=== PATIENT | male | born 1985 | race Caucasian/White ===

== ENCOUNTER → 2020-05-09 10:47 | Outpatient (BNVA) | payer OTHER, SELFPAY | PROVIDERS: Family Provider Emergency Medicine Emergency Medical Services; PCP Emergency Medicine Emergency Medical Services; Visit Provider Nurse Practitioner | DX: S69.91XA Unspecified injury of right wrist, hand and finger(s), initial encounter (principal); W19.XXXA Unspecified fall, initial encounter; M25.531 Pain in right wrist | CPT/HCPCS: 73110 ==